=== PATIENT | male | born 1930 | race Hispanic/Latino ===

== ENCOUNTER → 2017-10-28 | Outpatient (CLI) | payer MEDICARE | END | disposition home or self-care (01) | LOC: OIH 09:09 | PROVIDERS: ATTEND Internal Medicine Gastroenterology | DX: L03.90 Cellulitis, unspecified (principal) | CPT/HCPCS: 74150 ==

== ENCOUNTER 2019-04-06 08:41 | Inpatient (IN) | payer MEDICARE ==
[~2019-04-06] VITALS: Ht 167.6 cm; Wt 52.2 kg
[2019-04-06] MEDS ORDERED: FAMOTIDINE/PF 20 MG/2 ML VIAL IV ONE (09:14)
[2019-04-06] MEDS ORDERED: SODIUM CHLORIDE 0.9% 1000ML 1,000 ML IV ONE (09:15)
[2019-04-06] MEDS ORDERED: SODIUM CHLORIDE 0.9% 100 ML IV ONE (09:15)
[2019-04-06 09:42] LABS: BASOPHILS % (AUTO) 1.5 % (0.0-5.0); EOSINOPHILS % (AUTO) 0.6 % (0.0-8.0); HEMATOCRIT 39.7 % (42-54); LYMPHOCYTES % (AUTO) 16.6 % (21.0-51.0); MEAN CORPUSCULAR HEMOGLOBIN 29.5 pg (27.0-33.0); MEAN CORPUSCULAR HGB CONC 33.8 g/dL (32.0-36.0); MEAN CORPUSCULAR VOLUME 87.2 fL (79-99); NEUTROPHILS % (AUTO) 76.3 % (40.0-77.0); PLATELET COUNT (AUTO) 190 K/uL (130-400); RED BLOOD CELL COUNT(AUTO) 4.55 MIL/uL (4.50-6.20); RED CELL DISTRIBUTION WIDTH 14.5 % (11.0-15.5); WHITE BLOOD COUNT (AUTO) 6.1 K/uL (4.8-10.8)
[2019-04-06 09:54] LABS: CARBON DIOXIDE 27 mmol/L (21-32); CHLORIDE 98 mmol/L (101-111); CREATININE 1.7 mg/dL (0.5-1.5); GLOMERULAR FILTR. RATE CALC 41 mL/min (>60); GLUCOSE,RANDOM 114 mg/dL (70-105); POTASSIUM 5.5 mmol/L (3.5-5.1); SODIUM SERUM 132 mmol/L (136-145); UREA NITROGEN, BLOOD 43 mg/dL (7-18)
[2019-04-06 09:59] LABS: ALANINE AMINOTRANSFERASE 57 U/L (12-78); ALBUMIN 2.2 g/dL (3.5-5.0); ASPARTATE AMINOTRANSFERASE 49 U/L (10-37); BILIRUBIN,TOTAL 1.7 mg/dL (0.2-1.0); TOTAL PROTEIN, SERUM 6.7 g/dL (6.0-8.3)
[2019-04-06 10:00] LABS: LIPASE < 50 U/L (114-286)
[2019-04-06 12:17] LABS: INR 1.02 (0.85-1.15); PROTHROMBIN TIME 10.7 SEC (9.6-11.6)
[2019-04-06 13:44] LABS: OCCULT BLOOD,GASTRIC FLUID POSITIVE (NEGATIVE)
[2019-04-06 15:50] VITALS: BP 114/64
--- NOTE | 2019-04-06 15:55 | NUR ---
[facility] PT IS DNR, per daughter. Sw spoke to daughter/toshia Carvalho Cepeda [phone]. Daughter states pt is resident at House since 2014. Pt spends majority of time in bed, had PEG tube placed last week at [facility]. Pt was released from [facility] last Wednesday. Daughter states pt will return at in and gave verbal consent for referral back to House. CM to follow up and assist as needed Addendum: 04/06/19 at 1603 by ARNAUD SALGUERO Amended: Links added.
[2019-04-06 19:00] VITALS: BP 114/61
[2019-04-06] MEDS ORDERED: HYDRALAZINE HCL 20 MG/ML VIAL IV PRN (20:00)
[2019-04-06] MEDS ORDERED: ACETAMINOPHEN 325 MG TAB PO PRN (20:00)
[2019-04-06] MEDS ORDERED: ALPRAZOLAM 0.5 MG TABLET PO PRN (20:00)
[2019-04-06] MEDS ORDERED: SODIUM CHLORIDE 0.9% 1000ML 1,000 ML IV SCH (20:00)
[2019-04-06] MEDS ORDERED: HYDROCODONE/ACETAMINOPHEN 5/325 MG TAB PO PRN (20:00)
[2019-04-06] MEDS ORDERED: ZOLPIDEM TARTRATE 5 MG TAB PO PRN (20:00)
[2019-04-06] MEDS ORDERED: ONDANSETRON HCL 4 MG/2 ML VIAL IVP PRN (20:00)
[2019-04-06 21:17] LABS: HEMATOCRIT 34.4 % (42-54)
[2019-04-07] VITALS (26 sets, daily range): BP systolic 81–130; BP diastolic 40–91
[2019-04-07] MEDS: PANTOPRAZOLE 40 MG/VIAL IVP SCH ×3 (00:21→20:30)
[2019-04-07] MEDS: ZOSYN 3.375GM+NS 50ML 50 ML IV SCH ×4 (00:21→22:07)
[2019-04-07] MEDS: SODIUM CHLORIDE 0.9% 500ML 500 ML IV SCH ×13 (00:22→23:15)
[2019-04-07 04:43] LABS: CREATININE 1.6 mg/dL (0.5-1.5); POTASSIUM 4.5 mmol/L (3.5-5.1); THYROID STIMULATING HORMONE 1.09 uIU/mL (0.36-3.74)
--- NOTE | 2019-04-07 05:55 | NUR ---
Blood sugar 62 mg/dl Referred to Mandie Holly NP and ordered to give D50W IV x 1 only. - carried out.
[2019-04-07] MEDS ORDERED: DEXTROSE 50%-WATER 50 ML DISP.SYRIN IV ONE (06:12)
--- NOTE | 2019-04-07 06:20 | NUR ---
EGD Procedure Went to [facility] for EGD via stretcher. Pt. stays calm and no apparent distress noted.
[2019-04-07] MEDS ORDERED: DEXTROSE 50%-WATER 50 ML DISP.SYRIN IV SCH (06:30)
[2019-04-07] MEDS ORDERED: PROPOFOL 10 MG/ML 20ML VIAL IV ONE ×2 (06:37)
[2019-04-07] MEDS ORDERED: ESMOLOL HCL 10 MG/ML 10 ML VIAL ONE (06:37)
[2019-04-07] MEDS ORDERED: PHENYLEPHRINE HCL 10 MG/ML 1ML VIAL IV ONE (06:41)
[2019-04-07] MEDS ORDERED: ALBUMIN (HUMAN) 25% 50 ML IV ONE (07:08)
[2019-04-07 08:16] LABS: HEMATOCRIT 27.7 % (42-54)
[2019-04-07] MEDS: IPRATROPIUM/ALBUTEROL SULFATE 3 ML SOLUTION IH PRN ×3 (09:55→22:21)
--- NOTE | 2019-04-07 11:32 | NUR ---
PT S/P EGD Dr. Lindo called on this # [phone] concerning unstable BP, pending call back on [phone]
--- NOTE | 2019-04-07 11:38 | NUR ---
RD Notification Pt with PEG to be replaced in 1 wk as per RN. Pt NPO at this time. RD recommend NG Tube Feedings at this time. Recommended Tube feeding: Continuous Vital AF 1.2 goal of 55mls/hr (1320mL/1584kcal/99gm protein/1071mL) Recommended H2O Flush: 100mLs Q6HRS. Pt with Hx of DM, Chronic renal insufficiency. Pt LBM 04/06/19. Pt monitored labs: BUN 46, Cr 1.6, GFR 44, Na 135, Glu 174, Ca 7.9, Alb 2.2. Tube feeding recommendations to be placed in Pt chart. RD to continue to monitor. Please notify RD as additional nutrition concerns arise. Thank you. Addendum: 04/07/19 at [address] Amended: Links added.
[2019-04-07] MEDS ORDERED: ALBUMIN (HUMAN) 5% 500 ML IV SCH (12:15)
--- NOTE | 2019-04-07 13:42 | NUR ---
CM Note: [facility] re[facility] Spoke to Rufino w/ [facility], recieved clinicals, pt has reacceptance. Pt pending poc dc peg and replace as outpatient, start NGT/TPN vs replace peg. Per Rufino able to take care of pt w/NGT/TPN up to 45 days. Primary nurse aware. CM to cont to follow up.
[2019-04-07] MEDS: DEXTROSE 5%-LACTATED RINGERS 1,000 ML IV SCH (15:34)
[2019-04-08] MEDS: DEXTROSE 5%-LACTATED RINGERS 1,000 ML IV SCH ×3 (00:18→21:41)
[2019-04-08] MEDS: SODIUM CHLORIDE 0.9% 500ML 500 ML IV SCH ×10 (00:23→16:14)
[2019-04-08 01:32] LABS: APPEARANCE,URINE Clear (CLEAR); BILIRUBIN,URINE Negative (NEGATIVE); COLOR,URINE Yellow (YELLOW); GLUCOSE, URINE (UA) Negative (NEGATIVE); KETONES,URINE Negative (NEGATIVE); LEUKOCYTE ESTERASE ,URINE Negative (NEGATIVE); NITRATE,URINE Negative (NEGATIVE); OCCULT BLOOD,URINE Negative (NEGATIVE); PH,URINE 5.5 (5.0-8.0); PROTEIN,URINE POS 1+ mg/dL (NEGATIVE)
[2019-04-08 01:52] LABS: BACTERIA,URINE None Seen /HPF (None Seen); RBC,URINE None Seen /HPF (0-1); SQUAMOUS EPITHELIAL CELL,UR Rare /HPF (0-2); WBC,URINE 0-1 /HPF (0-1)
[2019-04-08 03:00] VITALS: BP 116/62
[2019-04-08 04:38] LABS: HEMATOCRIT 23.2 % (42-54); MEAN CORPUSCULAR HEMOGLOBIN 29.4 pg (27.0-33.0); MEAN CORPUSCULAR HGB CONC 33.5 g/dL (32.0-36.0); MEAN CORPUSCULAR VOLUME 87.9 fL (79-99); RED BLOOD CELL COUNT(AUTO) 2.64 MIL/uL (4.50-6.20); RED CELL DISTRIBUTION WIDTH 14.7 % (11.0-15.5); WHITE BLOOD COUNT (AUTO) 3.7 K/uL (4.8-10.8)
[2019-04-08 04:41] LABS: ALBUMIN 1.8 g/dL (3.5-5.0); BILIRUBIN,TOTAL 1.2 mg/dL (0.2-1.0); CREATININE 1.2 mg/dL (0.5-1.5); POTASSIUM 3.4 mmol/L (3.5-5.1)
[2019-04-08 04:59] LABS: PLATELET COUNT (AUTO) 108 K/uL (130-400)
[2019-04-08] MEDS: IPRATROPIUM/ALBUTEROL SULFATE 3 ML SOLUTION IH PRN ×4 (06:17→18:41)
[2019-04-08] MEDS: ZOSYN 3.375GM+NS 50ML 50 ML IV SCH ×3 (06:42→23:20)
[2019-04-08 08:00] VITALS: BP 108/64
--- NOTE | 2019-04-08 09:45 | NUR ---
BLOOD TRANSFUSION COMPLETED AT THIS TIME, NO ADVERSE REACTION NOTED, VS STABLE.
--- NOTE | 2019-04-08 10:12 | NUR ---
DR. VALDES PAGED, PENDING CALL BACK
[2019-04-08] MEDS: PANTOPRAZOLE 40 MG/VIAL IVP SCH ×2 (10:14→21:41)
[2019-04-08 11:54] VITALS: BP 111/61
[2019-04-08] MEDS ORDERED: DIATR MEGLU/DIATRIZOATE SODIUM 30 ML BOTTLE ONE (12:40)
--- NOTE | 2019-04-08 15:46 | NUR ---
PT UPDATE 14F SIZE NJ TUBE PLACED IN LEFT NARIS
[2019-04-08 16:00] VITALS: BP 116/59
--- NOTE | 2019-04-08 16:55 | NUR ---
PT OFF THE FLOOR AT THIS TIME FOR CT OF THE ABDOMEN WITH ORAL CONTRAST, NURSING WILL CONTINUE TO FOLLOW UP.
[2019-04-08 19:00] VITALS: BP 126/69
[2019-04-08 23:00] VITALS: BP 126/67
[2019-04-09 03:00] VITALS: BP 130/73
[2019-04-09] MEDS: ZOSYN 3.375GM+NS 50ML 50 ML IV SCH ×3 (06:09→23:16)
[2019-04-09] MEDS: IPRATROPIUM/ALBUTEROL SULFATE 3 ML SOLUTION IH PRN ×4 (06:15→23:08)
[2019-04-09] MEDS: DEXTROSE 5%-LACTATED RINGERS 1,000 ML IV SCH ×2 (06:50→15:56)
[2019-04-09 08:00] VITALS: BP 115/57
[2019-04-09] MEDS: PANTOPRAZOLE 40 MG/VIAL IVP SCH ×2 (08:48→20:21)
[2019-04-09 12:00] VITALS: BP 124/64
--- NOTE | 2019-04-09 12:09 | NUR ---
RD Update Pt with NG tube placed as per RN. Rec to start tube feeding, continuous Vital AF 1.2 @55mls/hr (1320mls/1584kcal/99gm pro). Orders previously placed in Pt chart. RN updated. RD to continue to monitor. Please notify as additional nutrition concerns arise. Thank you.
[2019-04-09 16:00] VITALS: BP_SYST 125; BP_SYST 147; BP_DIAS 67; BP_DIAS 73
[2019-04-09 19:00] VITALS: BP 129/66
--- NOTE | 2019-04-09 22:06 | NUR ---
NGT FEEDING FEEDING @25ML/HR TOLERATED WELL, INCREASED RATE TO 30ML/HR AT THIS TIME PER ORDER.WILL CONTINUE TO MONITOR Addendum: 04/09/19 at 2207 by PEE CUMMINS RN RN Amended: Links added.
[2019-04-09 23:00] VITALS: BP 132/73
--- NOTE | 2019-04-10 00:08 | NUR ---
status update ngt flushed with 100ml h20,tolerated well Addendum: 04/10/19 at 0309 by PEE CUMMINS RN RN Amended: Links added.
[2019-04-10] MEDS: DEXTROSE 5%-LACTATED RINGERS 1,000 ML IV SCH ×3 (02:05→22:49)
[2019-04-10 03:00] VITALS: BP_SYST 141; BP_SYST 151; BP_DIAS 82; BP_DIAS 96
--- NOTE | 2019-04-10 03:06 | NUR ---
feeding rate change feeding increased to 35ml/hr, residual checked <10ml, hob elevated at all times , aspiration precautions in effect Addendum: 04/10/19 at 0308 by PEE CUMMINS RN RN Amended: Links added.
[2019-04-10] MEDS: ZOSYN 3.375GM+NS 50ML 50 ML IV SCH ×3 (06:24→22:49)
[2019-04-10] MEDS: IPRATROPIUM/ALBUTEROL SULFATE 3 ML SOLUTION IH PRN ×2 (06:39→18:44)
[2019-04-10] MEDS ORDERED: SILVER NITRATE APPLICATOR 1 SWAB TP SCH (07:15)
[2019-04-10 08:00] VITALS: BP 142/72
[2019-04-10 08:12] LABS: HEMATOCRIT 32.2 % (42-54); MEAN CORPUSCULAR HEMOGLOBIN 29.3 pg (27.0-33.0); MEAN CORPUSCULAR HGB CONC 33.9 g/dL (32.0-36.0); MEAN CORPUSCULAR VOLUME 86.5 fL (79-99); PLATELET COUNT (AUTO) 114 K/uL (130-400); RED BLOOD CELL COUNT(AUTO) 3.72 MIL/uL (4.50-6.20); RED CELL DISTRIBUTION WIDTH 14.7 % (11.0-15.5); WHITE BLOOD COUNT (AUTO) 6.5 K/uL (4.8-10.8)
[2019-04-10 09:00] LABS: POTASSIUM 2.6 mmol/L (3.5-5.1)
[2019-04-10] MEDS: PANTOPRAZOLE 40 MG/VIAL IVP SCH ×2 (09:51→19:55)
[2019-04-10] MEDS: LIDOCAINE HCL-MPF 1% 2ML VIAL IVP PRN (09:52)
[2019-04-10] MEDS: POTASSIUM CHLORIDE 20MEQ/100ML 100 ML IV PRN ×2 (09:52→22:49)
[2019-04-10] MEDS: MORPHINE SULFATE 2 MG/ML 1ML SYG IVP PRN (09:53)
[2019-04-10 12:00] VITALS: BP 143/81
[2019-04-10 16:00] VITALS: BP 125/69
[2019-04-10 19:00] VITALS: BP 140/86
[2019-04-11] VITALS: BP 140/65
[2019-04-11 04:17] VITALS: BP 149/72
[2019-04-11 04:30] LABS: HEMATOCRIT 33.2 % (42-54); MEAN CORPUSCULAR HEMOGLOBIN 30.1 pg (27.0-33.0); MEAN CORPUSCULAR HGB CONC 34.4 g/dL (32.0-36.0); MEAN CORPUSCULAR VOLUME 87.5 fL (79-99); PLATELET COUNT (AUTO) 109 K/uL (130-400); RED CELL DISTRIBUTION WIDTH 14.8 % (11.0-15.5); WHITE BLOOD COUNT (AUTO) 8.1 K/uL (4.8-10.8)
[2019-04-11 04:53] LABS: CREATININE 0.9 mg/dL (0.5-1.5); POTASSIUM 3.2 mmol/L (3.5-5.1)
[2019-04-11] MEDS: POTASSIUM CHLORIDE 20MEQ/100ML 100 ML IV PRN (05:16)
[2019-04-11] MEDS: IPRATROPIUM/ALBUTEROL SULFATE 3 ML SOLUTION IH PRN ×4 (07:05→18:04)
[2019-04-11 08:00] VITALS: BP 145/76
[2019-04-11] MEDS: ZOSYN 3.375GM+NS 50ML 50 ML IV SCH ×3 (08:36→23:15)
[2019-04-11] MEDS: MORPHINE SULFATE 2 MG/ML 1ML SYG IVP PRN (08:42)
[2019-04-11] MEDS: DEXTROSE 5%-LACTATED RINGERS 1,000 ML IV SCH ×2 (08:51→19:00)
[2019-04-11 12:00] VITALS: BP 150/83
[2019-04-11] MEDS: PANTOPRAZOLE 40 MG/VIAL IVP SCH ×2 (12:31→21:25)
[2019-04-11 16:00] VITALS: BP 149/71
[2019-04-11 19:10] VITALS: BP 140/75
[2019-04-11 23:19] LABS: APPEARANCE,URINE Clear (CLEAR); BILIRUBIN,URINE Negative (NEGATIVE); COLOR,URINE Yellow (YELLOW); GLUCOSE, URINE (UA) Negative (NEGATIVE); KETONES,URINE Negative (NEGATIVE); LEUKOCYTE ESTERASE ,URINE Negative (NEGATIVE); NITRATE,URINE Negative (NEGATIVE); OCCULT BLOOD,URINE Negative (NEGATIVE); PH,URINE 6.5 (5.0-8.0); PROTEIN,URINE POS 1+ mg/dL (NEGATIVE)
[2019-04-11 23:26] LABS: BACTERIA,URINE None Seen /HPF (None Seen); RBC,URINE None Seen /HPF (0-1); SQUAMOUS EPITHELIAL CELL,UR Rare /HPF (0-2); WBC,URINE 0-1 /HPF (0-1)
[2019-04-12] VITALS (7 sets, daily range): BP systolic 134–149; BP diastolic 60–77
[2019-04-12] MEDS: DEXTROSE 5%-LACTATED RINGERS 1,000 ML IV SCH ×2 (05:00→16:50)
[2019-04-12 05:36] LABS: HEMATOCRIT 33.1 % (42-54); MEAN CORPUSCULAR HEMOGLOBIN 29.2 pg (27.0-33.0); MEAN CORPUSCULAR VOLUME 85.7 fL (79-99); PLATELET COUNT (AUTO) 145 K/uL (130-400); RED BLOOD CELL COUNT(AUTO) 3.86 MIL/uL (4.50-6.20); WHITE BLOOD COUNT (AUTO) 11.7 K/uL (4.8-10.8)
[2019-04-12 06:02] LABS: CREATININE 0.9 mg/dL (0.5-1.5); POTASSIUM 3.3 mmol/L (3.5-5.1)
[2019-04-12] MEDS: ZOSYN 3.375GM+NS 50ML 50 ML IV SCH ×2 (06:14→16:38)
[2019-04-12] MEDS: IPRATROPIUM/ALBUTEROL SULFATE 3 ML SOLUTION IH PRN ×4 (06:53→23:26)
--- NOTE | 2019-04-12 08:49 | NUR ---
SUSHIL JIMENEZ ROUNDED ON PATIENT ORDER RECEIVED TO CHANGE RATE ON IV FLUID TO 75 CC/HR ,
[2019-04-12] MEDS: PANTOPRAZOLE 40 MG/VIAL IVP SCH ×2 (09:16→20:23)
[2019-04-12] MEDS ORDERED: PRAV40TA3 PO (10:19)
[2019-04-12] MEDS ORDERED: ASPI-1012 PO (10:19)
[2019-04-12] MEDS ORDERED: FOLI0.8T43 PO (10:19)
[2019-04-12] MEDS ORDERED: DOCU100T PO (10:19)
[2019-04-12] MEDS ORDERED: NUT.237L52 PO (10:19)
[2019-04-12] MEDS ORDERED: DONE10TA8 PO (10:19)
[2019-04-12] MEDS ORDERED: ACET325T51 PO (10:19)
[2019-04-12] MEDS ORDERED: L.AC1CAP6 PO (10:19)
[2019-04-12] MEDS ORDERED: PROP1DRO4 OP (10:19)
[2019-04-12] MEDS ORDERED: IPRA3AMP24 IH (10:19)
[2019-04-12] MEDS ORDERED: [UNRECOGNIZED DRUG - CODE] PO (10:19)
--- NOTE | 2019-04-12 11:13 | NUR ---
CALLED DR YANES OFFICE FOR FOLLOW-UP APPOINTMENT GOT VOICE MESSAGE AND LEFT MESSAGES 3 TIMES . DISCHARGE PENDING SCHEDULE OF FOLLOW-UP APPOINTMENT
--- NOTE | 2019-04-12 16:03 | NUR ---
RD Follow up note Pt s/p Gastric fistula, staple placement. Pt with FTT, DNR status. Pt tolerating continuous Vital AF 1.2 tube feeding @55mls/hr as per RN. Pt with no residuals. LBM 04/08/19, constipation; Rec to add stool softener/laxative as medically feasible. Pt monitored labs: BUN 3.3, Ca 8.0, Alb 1.8. RD to continue to monitor. Please notify RD as additional nutrition concerns arise. Thank you. Addendum: 04/12/19 at [address] Amended: Links added.
[2019-04-13] MEDS: ZOSYN 3.375GM+NS 50ML 50 ML IV SCH ×3 (01:47→17:37)
[2019-04-13 03:00] VITALS: BP 142/73
[2019-04-13 05:40] LABS: HEMATOCRIT 33.1 % (42-54); MEAN CORPUSCULAR HGB CONC 33.3 g/dL (32.0-36.0); PLATELET COUNT (AUTO) 145 K/uL (130-400); RED BLOOD CELL COUNT(AUTO) 3.81 MIL/uL (4.50-6.20); RED CELL DISTRIBUTION WIDTH 15.1 % (11.0-15.5)
[2019-04-13 05:50] LABS: ALBUMIN 1.5 g/dL (3.5-5.0); BILIRUBIN,TOTAL 1.2 mg/dL (0.2-1.0); CREATININE 0.9 mg/dL (0.5-1.5)
[2019-04-13] MEDS: LIDOCAINE HCL-MPF 1% 2ML VIAL IVP PRN (05:55)
[2019-04-13] MEDS: POTASSIUM CHLORIDE 20MEQ/100ML 100 ML IV PRN ×2 (05:55→14:40)
[2019-04-13 05:58] LABS: BAND NEUTROPHILS % (MANUAL) 2 % (0-2); EOSINOPHILS % (MANUAL) 4 % (1-6); LYMPHOCYTES % (MANUAL) 8 % (22-44); MAN.DIFF COMMENT-IMPRESSION MANUAL DIFFERENTIAL; MONOCYTES % (MANUAL) 2 % (2-9); SEGMENTED NEUTROPHILS % 84 % (40-70)
[2019-04-13 05:59] LABS: PLATELET MORPHOLOGY COMMENT ADEQUATE
[2019-04-13] MEDS: DEXTROSE 5%-LACTATED RINGERS 1,000 ML IV SCH (06:10)
[2019-04-13] MEDS: IPRATROPIUM/ALBUTEROL SULFATE 3 ML SOLUTION IH PRN ×2 (07:00→10:19)
[2019-04-13 08:00] VITALS: BP 144/68
[2019-04-13] MEDS: PANTOPRAZOLE 40 MG/VIAL IVP SCH ×2 (08:25→21:37)
--- NOTE | 2019-04-13 10:46 | NUR ---
New orders new verbal orders given by SOURAV Dale for chest x-ray, and change neb treatments for Q4hrs from PRN. Hold feeding and hold fluids due to wheezing on bilateral lobes. Orders noted and carried out.
--- NOTE | 2019-04-13 11:46 | NUR ---
DR CHAN AT BEDSIDE NEW ORDER GIVEN TO RESUME NG FEEDING, ORDER NOTED AND CARRIED OUT.
[2019-04-13 12:00] VITALS: BP 135/70
--- NOTE | 2019-04-13 13:01 | NUR ---
FOLLOW-UP Pt IS AN 89 YEAR OLD MALE CURRENTLY ADMITTED SECONDARY TO [facility]. PT WITH HISTORY OF DYSPHAGIA WITH A PEG TUBE IN PLACE. CURRENTLY, Pt HAS AN NG TUBE. NO P.O. HAS BEEN PROVIDED TO Pt. PROCESS COACH SPOKE TO NURSE BERRY, NURSE REPORTS DR. CHAN HAS JUST RESUMED TUBE FEEDINGS AT THIS TIME. SKILLED SPEECH THERAPY IS NOT RECOMMENDED AT THIS TIME. TUBE FEEDING PRECAUTIONS ARE IN PLACE AND ARE BEING CARRIED OUT. Pt AT 45 DEGREE ANGLE IN BED. Addendum: 04/13/19 at 1304 by HOWARD KELLEY, [facility] Amended: Links added.
[2019-04-13] MEDS: IPRATROPIUM/ALBUTEROL SULFATE 3 ML SOLUTION IH SCH ×3 (14:13→21:20)
[2019-04-13 16:00] VITALS: BP 139/74
[2019-04-13 19:05] LABS: BASOPHILS % (AUTO) 0.3 % (0.0-5.0); EOSINOPHILS % (AUTO) 2.1 % (0.0-8.0); HEMATOCRIT 31.1 % (42-54); LYMPHOCYTES % (AUTO) 11.7 % (21.0-51.0); MEAN CORPUSCULAR HGB CONC 33.4 g/dL (32.0-36.0); MEAN CORPUSCULAR VOLUME 86.9 fL (79-99); MONOCYTES % (AUTO) 5.3 % (3.0-13.0); NEUTROPHILS % (AUTO) 80.6 % (40.0-77.0); PLATELET COUNT (AUTO) 152 K/uL (130-400); RED BLOOD CELL COUNT(AUTO) 3.58 MIL/uL (4.50-6.20); WHITE BLOOD COUNT (AUTO) 15.4 K/uL (4.8-10.8)
[2019-04-13 19:12] LABS: CREATININE 0.7 mg/dL (0.5-1.5); POTASSIUM 3.4 mmol/L (3.5-5.1)
[2019-04-13 19:27] LABS: INR 1.06 (0.85-1.15); PROTHROMBIN TIME 11.1 SEC (9.6-11.6)
[2019-04-13 19:54] VITALS: BP 117/65
[2019-04-13] MEDS: MAGNESIUM 2GM PREMIX 50ML 50 ML IV PRN (21:38)
[2019-04-14] VITALS (25 sets, daily range): BP systolic 108–160; BP diastolic 53–77
[2019-04-14] MEDS: ZOSYN 3.375GM+NS 50ML 50 ML IV SCH ×4 (00:32→23:35)
[2019-04-14] MEDS: IPRATROPIUM/ALBUTEROL SULFATE 3 ML SOLUTION IH SCH ×6 (01:39→22:03)
[2019-04-14 04:35] LABS: HEMATOCRIT 30.9 % (42-54); MEAN CORPUSCULAR HEMOGLOBIN 29.1 pg (27.0-33.0); MEAN CORPUSCULAR VOLUME 85.7 fL (79-99); PLATELET COUNT (AUTO) 158 K/uL (130-400); RED BLOOD CELL COUNT(AUTO) 3.61 MIL/uL (4.50-6.20); RED CELL DISTRIBUTION WIDTH 15.2 % (11.0-15.5)
[2019-04-14 04:48] LABS: ALBUMIN 1.4 g/dL (3.5-5.0); CREATININE 0.7 mg/dL (0.5-1.5); MAGNESIUM 1.6 mg/dL (1.80-2.40); POTASSIUM 3.3 mmol/L (3.5-5.1); TOTAL PROTEIN, SERUM 4.9 g/dL (6.0-8.3)
[2019-04-14 05:34] LABS: EOSINOPHILS % (MANUAL) 4 % (1-6); LYMPHOCYTES % (MANUAL) 13 % (22-44); MONOCYTES % (MANUAL) 4 % (2-9); SEGMENTED NEUTROPHILS % 79 % (40-70)
[2019-04-14 05:35] LABS: MAN.DIFF COMMENT-IMPRESSION MANUAL DIFFERENTIAL; PLATELET MORPHOLOGY COMMENT ADEQUATE
[2019-04-14] MEDS: MAGNESIUM 2GM PREMIX 50ML 50 ML IV PRN (05:43)
[2019-04-14] MEDS: MORPHINE SULFATE 2 MG/ML 1ML SYG IVP PRN (06:01)
--- NOTE | 2019-04-14 08:00 | NUR ---
NPO FOR EGD WITH MAC FOR PEG TUBE PLACEMENT. AT PRESENT TUBE FEEDING ON HOLD.
--- NOTE | 2019-04-14 09:50 | NUR ---
CM Note: Has reacceptance for [place], EMS arranged and faxed for today in case pt able to transfer once peg done and able to meet feeding goal. Primary nurse aware. CM to cont to follow up.
[2019-04-14] MEDS: PANTOPRAZOLE 40 MG/VIAL IVP SCH ×2 (09:53→21:19)
--- NOTE | 2019-04-14 12:34 | NUR ---
TO GI LAB NOW.
[2019-04-14] MEDS ORDERED: PROPOFOL 10 MG/ML 20ML VIAL IV ONE ×2 (12:35)
[2019-04-14] MEDS ORDERED: LIDOCAINE HCL 1% 20 ML VIAL ONE (12:35)
--- NOTE | 2019-04-14 14:05 | NUR ---
BACK FROM GI LAB. PEG PLACEMENT ATTEMPTED BUT PUS WAS ASPIRATED, FLUID WAS COLLECTED AND SENT TO LAB AND PROCEDURE WAS ABORTED AND PT. SENT BACK TO ROOM. NGT FEEDINGS RESUMED AT 55ML/HR.
--- NOTE | 2019-04-14 15:16 | NUR ---
RD Follow up Note Pt continues with Vital AF 1.2 @50mls/hr (1440kcal/90gm Protein). No tube feeding residuals. LBM 04/14/19. Pt monitored labs: K3.3, Glu 106, Ca 7.7, Mg 1.60, Alb 1.4. No nutrition concerns at this time. Please notify RD as nutrition concerns arise. Thank you. Addendum: 04/14/19 at [address] Amended: Links added.
--- NOTE | 2019-04-14 21:19 | NUR ---
Nursing Note Pt lying in bed. NG tube running at 55ml/hr without complications. Pt has Abdominal binder on. Dressing dry and intact under binder.
[2019-04-15] VITALS: BP 130/68
[2019-04-15] MEDS: IPRATROPIUM/ALBUTEROL SULFATE 3 ML SOLUTION IH SCH ×6 (02:15→21:43)
[2019-04-15] MEDS: MORPHINE SULFATE 2 MG/ML 1ML SYG IVP PRN (03:37)
[2019-04-15 04:00] VITALS: BP 140/74
[2019-04-15 05:26] LABS: MEAN CORPUSCULAR HEMOGLOBIN 29.1 pg (27.0-33.0); MEAN CORPUSCULAR HGB CONC 33.8 g/dL (32.0-36.0); MEAN CORPUSCULAR VOLUME 86.2 fL (79-99); PLATELET COUNT (AUTO) 191 K/uL (130-400); RED BLOOD CELL COUNT(AUTO) 3.48 MIL/uL (4.50-6.20); RED CELL DISTRIBUTION WIDTH 15.1 % (11.0-15.5); WHITE BLOOD COUNT (AUTO) 12.3 K/uL (4.8-10.8)
[2019-04-15 05:32] LABS: CREATININE 0.8 mg/dL (0.5-1.5); POTASSIUM 3.6 mmol/L (3.5-5.1)
[2019-04-15] MEDS: ZOSYN 3.375GM+NS 50ML 50 ML IV SCH ×3 (06:39→22:59)
[2019-04-15 08:00] VITALS: BP 140/63
[2019-04-15] MEDS: PANTOPRAZOLE 40 MG/VIAL IVP SCH ×2 (08:36→21:47)
[2019-04-15 12:00] VITALS: BP_SYST 116; BP_SYST 133; BP_DIAS 70; BP_DIAS 73
[2019-04-15] MEDS: NYSTATIN 30 GM CREAM.GM. TP SCH ×2 (14:41→23:09)
[2019-04-15 16:00] VITALS: BP_SYST 130; BP_SYST 147; BP_DIAS 66; BP_DIAS 88
[2019-04-15 20:00] VITALS: BP 138/68
[2019-04-16] VITALS: BP 140/73
[2019-04-16] MEDS: IPRATROPIUM/ALBUTEROL SULFATE 3 ML SOLUTION IH SCH ×6 (01:29→22:00)
[2019-04-16 04:00] VITALS: BP 142/72
[2019-04-16 05:14] LABS: HEMATOCRIT 30.5 % (42-54); MEAN CORPUSCULAR HEMOGLOBIN 29.4 pg (27.0-33.0); MEAN CORPUSCULAR HGB CONC 33.9 g/dL (32.0-36.0); MEAN CORPUSCULAR VOLUME 86.7 fL (79-99); PLATELET COUNT (AUTO) 240 K/uL (130-400); RED BLOOD CELL COUNT(AUTO) 3.52 MIL/uL (4.50-6.20); RED CELL DISTRIBUTION WIDTH 15.5 % (11.0-15.5); WHITE BLOOD COUNT (AUTO) 12.2 K/uL (4.8-10.8)
[2019-04-16 05:18] LABS: CREATININE 0.8 mg/dL (0.5-1.5); POTASSIUM 3.7 mmol/L (3.5-5.1)
[2019-04-16 05:53] LABS: BAND NEUTROPHILS % (MANUAL) 2 % (0-2); BASOPHILS % (MANUAL) 1 % (0-2); EOSINOPHILS % (MANUAL) 2 % (1-6); LYMPHOCYTES % (MANUAL) 13 % (22-44); MONOCYTES % (MANUAL) 7 % (2-9); REACTIVE LYMPHOCYTES 2 % (0-0); SEGMENTED NEUTROPHILS % 73 % (40-70)
[2019-04-16 05:54] LABS: MAN.DIFF COMMENT-IMPRESSION MANUAL DIFFERENTIAL; PLATELET MORPHOLOGY COMMENT ADEQUATE
[2019-04-16] MEDS: ZOSYN 3.375GM+NS 50ML 50 ML IV SCH ×3 (06:58→22:02)
[2019-04-16] MEDS: MORPHINE SULFATE 2 MG/ML 1ML SYG IVP PRN (07:55)
[2019-04-16 08:00] VITALS: BP 127/59
--- NOTE | 2019-04-16 08:05 | NUR ---
MOANING AND GROANING AND RESTLESS, NON-VERBAL, MEDICATED NOW, SUCTIONED, FEEDING STOPPED, HAD MOUTH FILLED WITH MILK.
[2019-04-16] MEDS: PANTOPRAZOLE 40 MG/VIAL IVP SCH ×2 (09:12→21:22)
[2019-04-16] MEDS: NYSTATIN 30 GM CREAM.GM. TP SCH ×2 (09:15→21:22)
[2019-04-16 12:00] VITALS: BP 121/66
[2019-04-16 16:00] VITALS: BP 120/62
[2019-04-16 19:00] VITALS: BP 145/67
[2019-04-17] VITALS (7 sets, daily range): BP systolic 127–152; BP diastolic 59–83
[2019-04-17] MEDS: IPRATROPIUM/ALBUTEROL SULFATE 3 ML SOLUTION IH SCH ×6 (01:41→21:47)
[2019-04-17] MEDS ORDERED: ZOSYN 3.375GM+NS 50ML 50 ML IV ONE (04:44)
--- NOTE | 2019-04-17 07:00 | NUR ---
Pt verbally unresponsive, resting in bed with eyes open. NG tube feeding running at 55ml/hr without complications, no residuals noted throughout shift. Pt with abdominal binder on.
[2019-04-17] MEDS: PANTOPRAZOLE 40 MG/VIAL IVP SCH ×2 (11:47→20:50)
[2019-04-17] MEDS: NYSTATIN 30 GM CREAM.GM. TP SCH ×2 (11:47→20:50)
--- NOTE | 2019-04-17 12:08 | NUR ---
CM Note: [facility] re[facility]ance, received pasrr Spoke to Rufino w/[facility], received updated clinicals and pasrr today. Pt has reacceptance. EMS filled out, pending to be faxed w/current date once pt ready to DC. Aware unable to replace peg as there was puss on the site, culture was taken now pending result. Pt currently has NGT, stated ok to take pt back w/NGT up to 45 days if needed. Primary nurse aware. CM to cont to follow up.
--- NOTE | 2019-04-17 13:43 | NUR ---
ZOSYN Medication order for zosyn 3.375g IV Q8H after [address] Ragsdale, on-call for [facility], was paged to enquire about continuing zosyn or not. Pending for doctor to call back.
--- NOTE | 2019-04-17 15:24 | NUR ---
HOSPICE Dr. Rico stated not to restart zosyn and to get hospice. Orders in computer and physician spoke to daughter Maia Wood over this and she was in agreement to refer to consult.
[2019-04-18] MEDS: IPRATROPIUM/ALBUTEROL SULFATE 3 ML SOLUTION IH SCH ×6 (01:20→21:29)
[2019-04-18 04:16] VITALS: BP 124/54
[2019-04-18 08:00] VITALS: BP 129/69
[2019-04-18] MEDS: PANTOPRAZOLE 40 MG/VIAL IVP SCH ×2 (10:47→21:31)
[2019-04-18] MEDS: NYSTATIN 30 GM CREAM.GM. TP SCH ×2 (10:47→21:33)
--- NOTE | 2019-04-18 10:58 | NUR ---
REFUSED HOSPICE SW spoke to daughter / JOE Carvalho and educated on hospice at [place]. Daughter states her father never discussed his wishes with her and she does not feel that pt is going to in the next six months. Daughter feels that hospice can't keep pt comfortable if he is not eating. Sw educated on the natural dying process but daughter feels that pt needs feeding tube needs to be placed before she can make decision. SW explained that if she decides at later time to make pt hospice, [place] can assist with making arrangements CM aware of above
--- NOTE | 2019-04-18 11:39 | NUR ---
CM Note: [facility] ok to take pt back Spoke to Rufino muñoz/[facility], made aware daughter is not ready for hospice on pt. Stated pt ok to return to [facility] whenever MD clear. EMS arranged and faxed for today, primary nurse to call [facility] once pt ready to DC. Primary nurse aware. CM to cont to follow up.
[2019-04-18 12:00] VITALS: BP 146/83
--- NOTE | 2019-04-18 14:19 | NUR ---
RD Follow Up Note Pt continues with tube feedings, Vital AF 1.2 @45mls/hr via NGT. Pt tolerating tube feedings. No note of GI distress. Pt LBM 04/18/19. Pt monitored labs: BUN 20. Glu 100, Ca 7.2. RD to continue to monitor. Please notify RD as nutritional concerns arise. Thank you. Addendum: 04/18/19 at [address] Amended: Links added.
[2019-04-18] MEDS: ZOSYN 3.375GM+NS 50ML 50 ML IV SCH ×2 (14:30→21:31)
--- NOTE | 2019-04-18 15:06 | NUR ---
[facility] M[facility] AWARE OF FAMILY REFUSING HOSPICE. NO NEW ORDERS RECEIVED. WILL CONTINUE TO MONITOR.
[2019-04-18 16:00] VITALS: BP 129/75
[2019-04-18 19:58] VITALS: BP 97/53
[2019-04-18 23:30] VITALS: BP 133/75
[2019-04-19] MEDS: IPRATROPIUM/ALBUTEROL SULFATE 3 ML SOLUTION IH SCH ×6 (01:17→22:26)
[2019-04-19 03:40] VITALS: BP 115/49
[2019-04-19 05:24] LABS: EOSINOPHILS % (AUTO) 3.7 % (0.0-8.0); HEMATOCRIT 29.5 % (42-54); LYMPHOCYTES % (AUTO) 26.1 % (21.0-51.0); MEAN CORPUSCULAR HEMOGLOBIN 29.5 pg (27.0-33.0); MEAN CORPUSCULAR HGB CONC 33.9 g/dL (32.0-36.0); MEAN CORPUSCULAR VOLUME 87.1 fL (79-99); MONOCYTES % (AUTO) 10.3 % (3.0-13.0); NEUTROPHILS % (AUTO) 58.9 % (40.0-77.0); NUCLEATED RED BLOOD CELLS 0.1 % (0.0-0.19); PLATELET COUNT (AUTO) 314 K/uL (130-400); RED BLOOD CELL COUNT(AUTO) 3.39 MIL/uL (4.50-6.20); RED CELL DISTRIBUTION WIDTH 14.9 % (11.0-15.5); WHITE BLOOD COUNT (AUTO) 9.3 K/uL (4.8-10.8)
[2019-04-19 05:39] LABS: CREATININE 0.8 mg/dL (0.5-1.5); MAGNESIUM 1.7 mg/dL (1.80-2.40); POTASSIUM 4.3 mmol/L (3.5-5.1)
[2019-04-19] MEDS: ZOSYN 3.375GM+NS 50ML 50 ML IV SCH ×3 (05:46→17:49)
[2019-04-19 08:00] VITALS: BP 130/67
[2019-04-19] MEDS: MAGNESIUM 2GM PREMIX 50ML 50 ML IV PRN (10:02)
[2019-04-19] MEDS: PANTOPRAZOLE 40 MG/VIAL IVP SCH ×2 (10:03→22:09)
[2019-04-19] MEDS: NYSTATIN 30 GM CREAM.GM. TP SCH ×2 (10:03→22:13)
[2019-04-19 12:00] VITALS: BP 133/77
--- NOTE | 2019-04-19 14:40 | NUR ---
[facility] consult Patient assessed as ordered. Patient has small skin tear to left buttock. [facility] recommendations submitted. Addendum: 04/19/19 at 1539 by NEHEMIAH DEE RN/ Amended: Links added.
[2019-04-19 16:00] VITALS: BP 117/62
[2019-04-19 19:25] VITALS: BP 139/72
[2019-04-19 23:33] VITALS: BP 129/60
[2019-04-20] VITALS (20 sets, daily range): BP systolic 106–146; BP diastolic 57–97
[2019-04-20] MEDS: IPRATROPIUM/ALBUTEROL SULFATE 3 ML SOLUTION IH SCH ×6 (01:49→21:18)
[2019-04-20] MEDS ORDERED: ZOSYN 3.375GM+NS 50ML 50 ML IV SCH (02:00)
[2019-04-20 05:01] LABS: EOSINOPHILS % (AUTO) 4.6 % (0.0-8.0); HEMATOCRIT 30.9 % (42-54); LYMPHOCYTES % (AUTO) 23.4 % (21.0-51.0); MEAN CORPUSCULAR HEMOGLOBIN 29.4 pg (27.0-33.0); MEAN CORPUSCULAR HGB CONC 34.3 g/dL (32.0-36.0); MEAN CORPUSCULAR VOLUME 85.8 fL (79-99); MONOCYTES % (AUTO) 9.4 % (3.0-13.0); NEUTROPHILS % (AUTO) 61.6 % (40.0-77.0); PLATELET COUNT (AUTO) 361 K/uL (130-400); RED CELL DISTRIBUTION WIDTH 15.8 % (11.0-15.5); WHITE BLOOD COUNT (AUTO) 9.9 K/uL (4.8-10.8)
[2019-04-20 05:11] LABS: INR 0.98 (0.85-1.15); PROTHROMBIN TIME 10.3 SEC (9.6-11.6)
[2019-04-20 05:24] LABS: CREATININE 0.9 mg/dL (0.5-1.5); POTASSIUM 4.3 mmol/L (3.5-5.1)
[2019-04-20] MEDS: FLUCONAZOLE 400 MG/NS 200 ML 200 ML IV SCH (08:41)
[2019-04-20] MEDS: PANTOPRAZOLE 40 MG/VIAL IVP SCH ×2 (09:28→22:42)
[2019-04-20] MEDS: NYSTATIN 30 GM CREAM.GM. TP SCH ×3 (09:28→22:42)
[2019-04-20] MEDS: ZOSYN 3.375GM+NS 50ML 50 ML IV SCH ×2 (11:26→17:53)
[2019-04-20] MEDS ORDERED: PROPOFOL 10 MG/ML 20ML VIAL IV ONE (12:50)
[2019-04-20] MEDS ORDERED: LIDOCAINE HCL-MPF 2% 5ML VIAL ONE (12:51)
[2019-04-21] MEDS: IPRATROPIUM/ALBUTEROL SULFATE 3 ML SOLUTION IH SCH ×5 (01:14→18:16)
[2019-04-21] MEDS: ZOSYN 3.375GM+NS 50ML 50 ML IV SCH ×2 (01:19→09:32)
[2019-04-21 03:00] VITALS: BP 133/73
[2019-04-21 08:28] VITALS: BP 130/68
[2019-04-21] MEDS: FLUCONAZOLE 400 MG/NS 200 ML 200 ML IV SCH (09:32)
[2019-04-21] MEDS: PANTOPRAZOLE 40 MG/VIAL IVP SCH (09:32)
[2019-04-21] MEDS: NYSTATIN 30 GM CREAM.GM. TP SCH (09:33)
--- NOTE | 2019-04-21 10:16 | NUR ---
RESIDUAL ASSESSED. 50 ML. FEEDING INCREASED TO 45 ML/HR. FLUSHED PEG TUBE WITH 100 ML HO2. WILL CONTINUE TO MONITOR. PEG TUBE SITE INTACT.
[2019-04-21 12:01] VITALS: BP 112/43
[2019-04-21 13:21] LABS: INR 0.98 (0.85-1.15); PROTHROMBIN TIME 10.3 SEC (9.6-11.6)
--- NOTE | 2019-04-21 15:43 | NUR ---
Nutrition f/u: Pt pending discharge, bolus feeding recommendations needed. Recommend formula change to Glucerna 1.5, 4.5cans daily. Flush 75ml before and after each feeding. LIZETH recommendations left in pt's chart, Pt's nurse notified. Please consult RD as nutrition concerns arise. Addendum: 04/21/19 at [address] Amended: Links added.
[2019-04-21 16:16] VITALS: BP 112/56
--- NOTE | 2019-04-21 17:15 | NUR ---
ASKED RADIOLOGY TO PLEASE HAVE A CHEST XRAY REPORT [facility] BECAUSE PT IS PENDING D/C. TALKED TO SHANNAN [facility], PT NEEDS OK TO USE PICC LINE FROM TO BE ABLE TO BE TRANSFERRED TO [facility].
--- NOTE | 2019-04-21 18:05 | NUR ---
PAGED AUDIT MGR BENIGNO. WAITING FOR CALL BACK TO REPORT CHEST XRAY RESULT.
--- NOTE | 2019-04-21 18:09 | NUR ---
BENIGNO BENJAMIN CALLED BACK. OK TO USE PICC LINE AND SEND PT TO [facility].
--- NOTE | 2019-04-21 19:45 | NUR ---
DISCHARGE Patient has been discharge by day shift nurse and is resting in bed AA&OX1; no shortness of breath or distress. EMS is here to transfer patient via stretcher to [place]. Package given to EMS. Patient is leaving with a PICC line to the right upper arm which was placed earlier today. Belongings, supplies, and 2 blankets were taken with patient. No family members present at this time.
== END 2019-04-21 19:50 | DRG 326 ==
LOC: EDH 08:41 → OBSVTOIN 10:39 → EDHIP 10:39 → 3AH 15:32
PROVIDERS: ADMIT Internal Medicine; ATTEND Internal Medicine
PROC: 0DJ08ZZ Inspection of Upper Intestinal Tract, Via Natural or Artificial Opening Endoscopic (ICD-10-PCS; 2019-04-07)
PROC: 0DP6XUZ Removal of Feeding Device from Stomach, External Approach (ICD-10-PCS; 2019-04-07)
PROC: 0DQ68ZZ Repair Stomach, Via Natural or Artificial Opening Endoscopic (ICD-10-PCS; 2019-04-07)
PROC: 30233N1 Transfusion of Nonautologous Red Blood Cells into Peripheral Vein, Percutaneous Approach (ICD-10-PCS; principal; 2019-04-08)
PROC: 0DH63UZ Insertion of Feeding Device into Stomach, Percutaneous Approach (ICD-10-PCS; 2019-04-14)
PROC: 02HV33Z Insertion of Infusion Device into Superior Vena Cava, Percutaneous Approach (ICD-10-PCS; 2019-04-21)
PROC: B548ZZA Ultrasonography of Superior Vena Cava, Guidance (ICD-10-PCS; 2019-04-21)
DX: K94.29 Other complications of gastrostomy (principal); E43 Unspecified severe protein-calorie malnutrition; K92.2 Gastrointestinal hemorrhage, unspecified; D62 Acute posthemorrhagic anemia; K31.6 Fistula of stomach and duodenum; R64 Cachexia; R47.01 Aphasia; R18.8 Other ascites; Z68.1 Body mass index [BMI] 19.9 or less, adult; K94.21 Gastrostomy hemorrhage; K21.9 Gastro-esophageal reflux disease without esophagitis; E11.22 Type 2 diabetes mellitus with diabetic chronic kidney disease; I12.9 Hypertensive chronic kidney disease with stage 1 through stage 4 chronic kidney disease, or unspecified chronic kidney disease; R62.7 Adult failure to thrive; E11.51 Type 2 diabetes mellitus with diabetic peripheral angiopathy without gangrene; R13.12 Dysphagia, oropharyngeal phase; F03.90 Unspecified dementia, unspecified severity, without behavioral disturbance, psychotic disturbance, mood disturbance, and anxiety; I25.10 Atherosclerotic heart disease of native coronary artery without angina pectoris; N18.9 Chronic kidney disease, unspecified; Z66 Do not resuscitate; F41.9 Anxiety disorder, unspecified; Y83.8 Other surgical procedures as the cause of abnormal reaction of the patient, or of later complication, without mention of misadventure at the time of the procedure; K31.89 Other diseases of stomach and duodenum; J47.9 Bronchiectasis, uncomplicated; Z74.01 Bed confinement status; Z79.82 Long term (current) use of aspirin; Z89.512 Acquired absence of left leg below knee
CPT/HCPCS: 36415; 36430; 43235; 43246; 71045; 74018; 74150; 80048; 80053; 81001; 82271; 82948; 83690; 83735; 84132; 84443; 85014; 85018; 85025; 85027; 85610; 86850; 86900; 86901; 86922; 87040; 87071; 87077; 87186; 87205; 93005; 94640; 94664; 97039; C1894; C9113; G0378; J1450; J2370; J2543; J2704; J3475; J3480; J3490; J7030; J7040; J7070; P9016; P9045; P9047; Q9963